=== PATIENT | male | born 1995 | race Two or more races ===

== ENCOUNTER → 2024-04-13 | Outpatient (CLI) | payer OTHER, SELFPAY ==
--- NOTE | 2024-04-13 13:00 | XR_ITS ---
Examination: Hand, right 3 views Technique: Hand AP, oblique, lateral 3 views Date and time of exam: April 13, 2024 1302 hours INDICATIONS: Injury to the hand today, hand pain FINDINGS: No acute fracture No dislocation No foreign body IMPRESSION: No acute fracture
== END | disposition home or self-care (01) ==
LOC: CDIM 12:34
PROVIDERS: Referring Provider Physician Assistant; Visit Provider Physician Assistant
DX: S69.91XA Unspecified injury of right wrist, hand and finger(s), initial encounter (principal); X58.XXXA Exposure to other specified factors, initial encounter
CPT/HCPCS: 73130

== ENCOUNTER → 2024-05-23 | Outpatient (CLI) | payer OTHER, SELFPAY ==
--- NOTE | 2024-05-23 07:00 | XR_ITS ---
Exam: MRI knee without contrast, right Date and time of exam: May 23, 2024 0709 hours INDICATIONS: Right knee pain instability joint clicking swelling beginning 2 years ago Technique: Multiple axial, coronal, and sagittal sections on the knee have been obtained. T2-Weighted sagittal, fat-suppressed images, TR 3,500, TE 62, T2 weighted coronal fat-saturated images, TR 3,500, TE 62 Proton density sagittal sections, TR 1800, TE 31. T-1 weighted coronal images, TR 524, TE 13.0 Findings: Medial meniscus anterior horn intact. Medial meniscus, body small peripheral horizontal linear tear. Posterior horn medial meniscus small peripheral horizontal linear tear. Lateral meniscus anterior horn is intact Lateral meniscus, body is intact Posterior horn lateral meniscus is intact Anterior cruciate ligament mild to moderate strain Posterior cruciate ligament appears intact. Knee effusion is small. Quadriceps and patellar tendons appear intact. There is no evidence of tendinosis. Inflammatory change or fracture of Hoffa's fat pad is not seen. Medial patellar facet demonstrates no thinning. Lateral patellar facet cartilage demonstrates no thinning. Trochlear cartilage demonstrates no thinning. Marrow signal adequate.. Medial collateral ligament appears intact. No meniscocapsular separation is seen. Illiotibial band and fibular collateral ligament are intact. Biceps femoris tendons appear intact. Medial femoral condylar articular cartilage demonstrates mild thinning. Lateral femoral condylar articular cartilage demonstratesno thinning. Tibial plateau cartilage demonstrates mild medial thinning. Impression: Small horizontal peripheral linear tears body and posterior horn medial meniscus Mild to moderate strain anterior cruciate ligament
== END | disposition home or self-care (01) ==
PROVIDERS: Referring Provider Nurse Practitioner Primary Care; Visit Provider Nurse Practitioner Primary Care
DX: S83.241A Other tear of medial meniscus, current injury, right knee, initial encounter (principal); S89.91XA Unspecified injury of right lower leg, initial encounter; X58.XXXA Exposure to other specified factors, initial encounter
CPT/HCPCS: 73721

== ENCOUNTER 2024-07-12 17:12 | Emergency (ER) | payer OTHER, MEDICAID, SELFPAY ==
--- NOTE | 2024-07-12 17:53 | XR_ITS ---
Examination: CT abdomen and pelvis without contrast. Coronal 3-D reconstructions. Sagittal 2-D reconstructions. Date and time of exam:July 12, 2024 at 1834 hrs. Comparison July 01, 2017 Indications: Onset abdominal pain beginning 7 days ago CTDI: vol (mGy): 12 DLP: (mGycm): 811 Technique: Axial images of the abdomen have been obtained, 3 mm slice thickness Intravenous contrast material has not been administered. Low dose protocols were performed. One or more of the following dose reduction techniques were used; automated exposure control, adjustment of the mA and/or KV according to patient size, use of iterative reconstruction technique. Findings: Hepatomegaly 20 cm Diffuse fatty infiltration throughout the liver No gallstones Spleen not enlarged No pancreatic or adrenal mass No renal or ureteral calculi, no hydronephrosis 26 mm fat-containing umbilical hernia Normal appendix No bowel obstruction No diverticulitis, scattered diverticulosis is present Normal seminal vesicles No prostatomegaly Contracted urinary bladder Intact osseous structures Impression: Hepatomegaly, 20 cm with fatty infiltration No renal or ureteral calculi, no hydronephrosis 26 mm fat-containing umbilical hernia Normal appendix Scattered colonic diverticulosis, no diverticulitis
--- NOTE | 2024-07-12 17:54 | PD.EDRME ---
Rapid Medical Screening Exam RME Arrival date/time: 07/12/24 17:12 28-year-old male with no known medical history presents to the emergency room with a chief complaint of lower abdominal 7 out of 10 pain. Patient states he has been having episodes of constipation for the last 7 days where he feels like his bowel movements are very small. Today patient states he had a bowel movement and there was a lot of blood when he wiped as well as in the toilet bowl. I have greeted and performed a focused initial assessment of this patient. A comprehensive ED assessment and evaluation of the patient, analysis of all test results, and completion of the medical decision making process will be conducted by additional ED providers. Chief Complaint: General Adult/Misc Complain Time Seen by Provider: 07/12/24 17:30 Vital signs reviewed by provider: Yes
[2024-07-12 18:13] LABS: Basophils # (Auto) 0.1 Thou/mm3 (0.0-0.2); Basophils % (Auto) 1 % (0-2.5); Eosinophils # (Auto) 0.2 Thou/mm3 (0.0-0.5); Eosinophils % (Auto) 2 % (0-10); Hematocrit 44.4 % (41.0-53.0); Immature Granulocytes % (Auto) 0 % (0-0); Immature Granulocytes Auto 0.02 Thou/mm3 (0.00-0.00); Lymphocytes # (Auto) 3.6 Thou/mm3 (1.0-4.8); Lymphocytes % (Auto) 40 % (10-50); Mean Corpuscular HGB Conc 33.8 g/dl (31.0-37.0); Mean Corpuscular Hemoglobin 29.4 pg (25.0-35.0); Mean Corpuscular Volume 87 fL (80-100); Monocytes # (Auto) 0.5 Thou/mm3 (0.0-0.8); Monocytes % (Auto) 6 % (0-12); Neutrophils # (Auto) 4.6 Thou/mm3 (1.8-7.7); Neutrophils % (Auto) 51 % (37-80); Nucleated Red Blood Cell % 0 /100 WBC (0); Platelet Count 245 Thou/mm3 (140-440); RDW Standard Deviation 40.1 fL (35.1-43.9); White Blood Count 8.9 Thou/mm3 (3.8-10.6)
[2024-07-12 18:27] LABS: Partial Thromboplastin Time 29.1 Seconds (22.0-36.0)
[2024-07-12 18:43] VITALS: BP 128/84; PULSE 98; RESP 18; TEMP 36.8; O2SAT 98; BMI 33.2
[2024-07-12 18:58] LABS: Alanine Aminotransferase 94 U/L (10-49); Albumin, Serum 4.9 gm/dL (3.5-5.0); Albumin/Globulin Ratio 1.8 (1.2-2.2); Alkaline Phosphatase 86 U/L (46-116); Anion Gap 8 (7-16); Aspartate Amino Transferase 41 U/L (0-34); BUN/Creatinine Ratio 14 Ratio (12-20); Bilirubin,Total 0.4 mg/dL (0.3-1.2); Blood Urea Nitrogen 15 mg/dL (9-23); Calcium 9.5 mg/dL (8.3-10.6); Calcium (Corrected) 9.5 mg/dL (8.5-10.1); Carbon Dioxide 28.2 mMol/L (20.0-31.0); Chloride 105 mMol/L (98-107); Creatinine (Component) 1.1 mg/dL (0.6-1.3); Estimated Creatinine Clearance 133.8 mL/min (>60); Globulin 2.8 gm/dL (2.3-3.5); Glucose 91 mg/dL (74-106); Lipase 59 U/L (12-53); Osmolality,Calculated 282 (275-295); Potassium 3.7 mMol/L (3.4-5.1); Sodium 141 mMol/L (136-145); Total Protein 7.7 gm/dL (5.7-8.2); eGFR > 60 See Note
[2024-07-12 19:13] LABS: Collection Type, Urine Clean Catch; Squamous Epithelial Cell,Urine 0 /hpf (0-5)
[2024-07-12 19:18] LABS: Bilirubin,Urine Negative (Negative); Blood,Urine Negative (Negative); Clarity,Urine Clear (Clear/Hazy); Color,Urine Yellow (Lt Yel-Yel); Glucose, Urine Negative (Negative); Ketones,Urine Negative (Negative); Leukocyte Esterase,Urine Negative (Negative); Nitrite,Urine Negative (Negative); Protein,Urine Negative (Neg - Trace); RBC,Urine 1 /hpf (0-3); Urobilinogen,Urine Negative mg/dL (0.0-1.0); WBC,Urine < 1 /hpf (0-5)
--- NOTE | 2024-07-12 21:29 | EDNOTE_ITS ---
ED Abdominal Pain RME/HPI General Chief Complaint: General Adult/Misc Complain Stated complaint: ABD PAIN, DIFF HAVING BM, BLOODY BM TODAY Time seen by provider: 07/12/24 17:30 Arrival date/time: 07/12/24 17:12 RME / HPI RME / HPI narrative: 28-year-old male with no known medical history presents to the emergency room with a chief complaint of lower abdominal 7 out of 10 pain. Patient states he has been having episodes of constipation for the last 7 days where he feels like his bowel movements are very small. Today patient states he had a hard bowel movement and there was a lot of blood when he wiped as well as in the toilet bow l. Related Data Previous Rx's ?Medication ?Instructions ?Recorded ibuprofen 800 mg tablet 800 mg PO Q8H PRN pain #20 t abs 04/14/23 polyethylene glycol 3350 17 17 g PO QDAY 5 days #119 g mello 07/12/24 gram/dose oral powder Allergies Allergy/AdvReac Type Severity Reaction Status Date / Time amoxicillin Allergy Severe HIVES Verified 07/12/24 17:15 Penicillins Allergy Severe HIVES Verified 07/12/24 17:15 Review of Systems Review of Systems Systems Reviewed: All systems reviewed, normal except as documented Past Medical History Past Medical History CARDIAC: Negative Cardiac Disorders or Congestive Heart Failure RESPIRATORY: Negative Chronic Obstructive Pulmonary Disease (COPD) or Asthma GENITOURINARY: Negative Renal Disease MUSCULOSKELETAL: Positive Musculoskeletal Disorders ENT: Positive Blind (legally blind rt eye) ENDOCRINE: Negative Diabetes Mellitus Type 1 or Diabetes Mellitus Type 2 HEMATOLOGIC: Negative Sickle Cell Disease Social History SMOKING STATUS: Never smoker SUBSTANCE USE: does not use ED Exam Narrative Physical exam: Constitutional: no acute distress, age appropriate, non-toxic Eyes: PERRL, conjunctivae w/o pallor, EOMI HENT: normocephalic, atraumatic. Oral mucosa moist Respiratory Effort: no stridor, effort normal, no retractions Breath sounds: Clear bilaterally; No rales, No rhonchi, No wheezing Cardiovascular: regular rhythm, S1 and S2 normal, no murmur Abdominal: soft; non-distended, non-tender Rectal: Deferred Musculoskeletal: no deformities, no swelling, no LE edema Skin: warm, dry; No rash Neurology: alert, oriented X 4. Normal gait. Moves all extremities spontaneously. Psychology: cooperative, normal mood Course Quality Measures none Orders Category Date Time Status CT abdomen pelvis wo con Stat Exams 07/12/24 17:53 Completed CBC Stat Lab 07/12/24 18:04 Completed CMP [Comprehensive Metabolic Panel] Stat Lab 07/12/24 18:04 Completed Lipase Stat Lab 07/12/24 18:04 Completed PT [Prothrombin Time with INR] Stat Lab 07/12/24 18:04 Completed PTT [Partial Thromboplastin Time] Stat Lab 07/12/24 18:04 Completed Type and Screen Stat Lab 07/12/24 18:04 Completed UA [Urinalysis] Stat Lab 07/12/24 18:30 Completed Urine Culture Stat Lab 07/12/24 18:30 Received Vital Signs Vital signs: Vital Signs Temperature 98.3 F 07/12/24 18:43 Pulse Rate 98 07/12/24 18:43 Respiratory Rate 18 07/12/24 18:43 Blood Pressure 128/84 07/12/24 18:43 Pulse Oximetry (%) 98 07/12/24 18:43 Oxygen Delivery Method Room Air 07/12/24 18:43 Abdominal Pain MDM MDM Narrative MDM Narrative:: Patient is a 28-year-old male who presents with complaint of abdominal pain, constipation, and 1 episode of bright red bleeding after bowel movement. Differential diagnoses include GI bleed, gastroenteritis, appendicitis, hemorrhoid, anal fissure Given history and exam, along with normal hemoglobin, I have very low suspicion for GI bleeding. Given history of constipation, very likely anal fissure. CT without evidence of appendicitis or other surgical abdomen. Labs reviewed and are reassuring. Counseled patient to increase oral fluid intake. Will send Rx for MiraLAX. Strict return to ED precautions given and counseled to follow-up with primary care. Patient data External records reviewed:: [facility] previous records Clinical information provided by:: patient Social determinants that could affect healthcare access:: none Patient has the following chronic illnesses:: None How is presenting disease/condition affected by chronic disease/condition?: no chronic disease Evaluation data The following diagnostics were reviewed and interpreted by me:: lab results and radiology exam(s) Lab and/or radiology exams considered but not ordered:: None Interpretation Summary: CBC shows no leukocytosis or anemia CMP shows no electrolyte abnormalities, no KIMBERLY. LFTs less than 3x upper limit of normal UA unremarkable Examination: CT abdomen and pelvis without contrast. Coronal 3-D reconstructions. Sagittal 2-D reconstructions. Date and time of exam:July 12, 2024 at 1834 hrs. Comparison July 01, 2017 Findings: Hepatomegaly 20 cm Diffuse fatty infiltration throughout the liver No gallstones Spleen not enlarged No pancreatic or adrenal mass No renal or ureteral calculi, no hydronephrosis 26 mm fat-containing umbilical hernia Normal appendix No bowel obstruction No diverticulitis, scattered diverticulosis is present Normal seminal vesicles No prostatomegaly Contracted urinary bladder Intact osseous structures Impression: Hepatomegaly, 20 cm with fatty infiltration No renal or ureteral calculi, no hydronephrosis 26 mm fat-containing umbilical hernia Normal appendix Scattered colonic diverticulosis, no diverticulitis Medications / Prescriptions Medications or Prescriptions considered but not ordered:: None Medication administrations:: N/A Consultations Consultation(s) initiated? (list below): No Diagnosis Differential diagnosis abdominal pain: other (See MDM section) Most likely diagnosis given after review of the tests above:: Constipation Admission Indicated Admission indicated?: not indicated Admission Request Was there a request for admission?: No Disposition Plan Disposition Plan: Discharge Discharge Attestation Discharge Attestation: The patient and all family members were given an opportunity to ask questions and understood the discharge instructions. Discharge instructions specifically effects, indications for sooner follow up or return to the emergency department, and the expected course of current diagnosis. Patient condition: Stable Discharge Plan Plan Patient Disposition: HOME (Self Care) Prescriptions/Referrals Prescriptions/Med Rec: New polyethylene glycol 3350 17 gram/dose powder 17 g PO QDAY 5 Days Qty: 119 0RF No Action ibuprofen 800 mg tablet 800 mg PO Q8H PRN (Reason: pain) Qty: 20 0RF Referrals: No Primary/Family,Physician [Primary Care Provider] - In 1 week Problem List Clinical Impression: Abdominal pain, Constipation Patient/Caregiver Discharge Instructions Education Materials: Understanding Anal Fissures, Taking a Sitz Bath, ED Constipation (Adult) Additional Instructions: Increase oral fluid intake. Take medication as prescribed. Do warm sitz baths twice a day. Return to the ED at anytime for any new or worsening symptoms. -up with your PCP Print Language: Niuean Stand Alone Forms: [facility] Info., Patient Portal Info Letter
== END 2024-07-12 21:49 | disposition home or self-care (01) ==
PROVIDERS: Nurse Practitioner Family; Emergency Provider Emergency Medicine
DX: K59.00 Constipation, unspecified (principal); K76.0 Fatty (change of) liver, not elsewhere classified; K42.9 Umbilical hernia without obstruction or gangrene; K57.30 Diverticulosis of large intestine without perforation or abscess without bleeding
CPT/HCPCS: 36415; 74176; 80053; 81001; 83690; 85025; 85610; 85730; 86850; 86900; 86901; 87086; 99284

== ENCOUNTER 2025-03-14 16:17 | Emergency (ER) | payer OTHER, SELFPAY ==
--- NOTE | 2025-03-14 16:22 | EKG_ITS ---
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
[2025-03-14 16:46] VITALS: BP 138/85; PULSE 96; RESP 18; TEMP 36.7; O2SAT 98; BMI 35.3
--- NOTE | 2025-03-14 16:46 | XR_ITS ---
CLINICAL INDICATION: Chest Pain Exam date and time: 03/14/2025, 4:57 p.m. TECHNIQUE: XR chest 2V COMPARISON: Chest radiograph 01/07/2023 FINDINGS: The cardiomediastinal silhouette is within normal limits. No airspace opacities suggestive of pneumonia. No mass detected. No pleural effusion or pneumothorax. No acute osseous abnormality detected. Redemonstration of mild convex right thoracic spinal curvature. IMPRESSION: No radiographic evidence for acute cardiopulmonary abnormality. No significant interval change since the comparison study. - This report was generated utilizing speech recognition software. -
--- NOTE | 2025-03-14 16:46 | XR_ITS ---
Examination: CT brain head without contrast. 2-D sagittal coronal reconstructions Date and time of exam: March 14, 2025, 1735 hours INDICATIONS: Syncopal episode and fall today head pain CTDI: vol (mGy): 56 DLP: (mGycm): 1179 Technique: Multiple CT axial sections of the brain have been obtained, 5 mm slice thickness. Contrast has not been administered. 2-D sagittal, coronal reconstructions have been obtained Low dose protocols were performed. One or more of the following dose reduction techniques were used; automated exposure control, adjustment of the mA and/or KV according to patient size, use of iterative reconstruction technique. Findings: No significant ventricular enlargement. Intra-axial or extra-axial hemorrhage density is not seen. No mass effect or midline shift Basal cisterns are not remarkable. Fourth ventricle is midline. Cranial vault intact. Impression: Negative for acute hemorrhage, mass effect or midline shift
--- NOTE | 2025-03-14 16:46 | PD.EDRME ---
Rapid Medical Screening Exam RME Arrival date/time: 03/14/25 16:17 29-year-old male presents emergency room today for complaints of dizziness chest pain headache Chief Complaint: Chest Pain Vital signs reviewed by provider: Yes Exam: On exam patient well-appearing patient does not appear to talk Clinical Impression: Lab work imaging EKG obtained
[2025-03-14 17:39] LABS: Basophils # (Auto) 0.1 Thou/mm3 (0.0-0.2); Basophils % (Auto) 1 % (0-2.5); Eosinophils # (Auto) 0.2 Thou/mm3 (0.0-0.5); Eosinophils % (Auto) 2 % (0-10); Hematocrit 43.5 % (41.0-53.0); Hemoglobin 14.8 g/dL (13.5-16.0); Immature Granulocytes Auto 0.02 Thou/mm3 (0.00-0.00); Lymphocytes # (Auto) 3.8 Thou/mm3 (1.0-4.8); Lymphocytes % (Auto) 40 % (10-50); Mean Corpuscular HGB Conc 34.0 g/dl (31.0-37.0); Mean Corpuscular Hemoglobin 29.6 pg (25.0-35.0); Mean Corpuscular Volume 87 fL (80-100); Monocytes # (Auto) 0.7 Thou/mm3 (0.0-0.8); Monocytes % (Auto) 8 % (0-12); Neutrophils # (Auto) 4.7 Thou/mm3 (1.8-7.7); Neutrophils % (Auto) 50 % (37-80); Nucleated Red Blood Cell # 0.00 Thou/mm3 (0.00-0.00); Nucleated Red Blood Cell % 0 /100 WBC (0); Platelet Count 260 Thou/mm3 (140-440); RDW Standard Deviation 39.3 fL (35.1-43.9); Red Blood Count 5.00 Miln/mm3 (4.50-5.90); White Blood Count 9.5 Thou/mm3 (3.8-10.6)
[2025-03-14 18:01] LABS: Alanine Aminotransferase 144 U/L (10-49); Albumin, Serum 5.2 gm/dL (3.5-5.0); Albumin/Globulin Ratio 2.3 (1.2-2.2); Alkaline Phosphatase 96 U/L (46-116); Anion Gap 13 (7-16); Aspartate Amino Transferase 73 U/L (0-34); BUN/Creatinine Ratio 7 Ratio (12-20); Bilirubin,Total 0.4 mg/dL (0.3-1.2); Blood Urea Nitrogen 7 mg/dL (9-23); Calcium 9.7 mg/dL (8.3-10.6); Calcium (Corrected) 9.7 mg/dL (8.5-10.1); Carbon Dioxide 24.5 mMol/L (20.0-31.0); Chloride 104 mMol/L (98-107); Creatinine (Component) 1.0 mg/dL (0.6-1.3); Estimated Creatinine Clearance 150.3 mL/min (>60); Globulin 2.3 gm/dL (2.3-3.5); Glucose 98 mg/dL (74-106); Osmolality,Calculated 279 (275-295); Potassium 3.9 mMol/L (3.4-5.1); Sodium 141 mMol/L (136-145); Total Protein 7.5 gm/dL (5.7-8.2); Troponin I < 0.002 ng/mL (0.0-0.045); eGFR > 60 See Note
[2025-03-14 22:18] VITALS: BP 147/101; PULSE 76; RESP 16; TEMP 36.8; O2SAT 97
--- NOTE | 2025-03-14 22:26 | EDNOTE_ITS ---
ED Chest Pain RME/HPI General Chief Complaint: Chest Pain Stated Complaint: CHEST HEAVINESS, DIZZY, WEAK, TIRED Time Seen by Provider: 03/14/25 22:27 Arrival date/time: 03/14/25 16:17 RME / HPI RME / HPI narrative: 03/14/25 16:17 29-year-old male presents emergency room today for complaints of dizziness chest pain headache Dr. Harding?s Main ED Evaluation: 29yo male with no significant past medical history presents to the ED for a chief complaint of mid chest pain x this afternoon. Patient was out shopping when he developed sudden onset of chest heaviness, dizziness, nausea, and sweating. Patient denies any palpitations or any other associated symptoms. Denies any history of DM, HTN, or HLD. Denies tobacco use. Related Data Previous Rx's ?Medication ?Instructions ?Recorded ibuprofen 800 mg tablet 800 mg PO Q8H PRN pain #20 t abs 04/14/23 Allergies Allergy/AdvReac Type Severity Reaction Status Date / Time amoxicillin Allergy Severe HIVES Verified 03/14/25 16:20 Penicillins Allergy Severe HIVES Verified 03/14/25 16:20 Review of Systems Review of Systems Systems Reviewed: All systems reviewed, normal except as documented Past Medical History Past Medical History CARDIAC: Negative Cardiac Disorders or Congestive Heart Failure RESPIRATORY: Negative Chronic Obstructive Pulmonary Disease (COPD) or Asthma GENITOURINARY: Negative Renal Disease MUSCULOSKELETAL: Positive Musculoskeletal Disorders ENT: Positive Blind ENDOCRINE: Negative Diabetes Mellitus Type 1 or Diabetes Mellitus Type 2 HEMATOLOGIC: Negative Sickle Cell Disease Social History SMOKING STATUS: Never smoker SUBSTANCE USE: does not use ED Exam Narrative Physical exam: Generally patient is alert and in no obvious distress, chest shows no wounds no crepitance no subcu air nontender to palpation, heart regular rate and rhythm, lungs clear to auscultation equal laterally, abdomen soft bowel sounds present nondistended nontender, skin is warm pale and dry, neurologic exam no focal motor or sensory deficits cranial nerves II through XII grossly intact Course Course Course Narrative: CXR is ordered for determining the etiology of chest pain. Quality Measures none Orders Category Date Time Status EKG (ED ONLY) *Do not use* NOW Care 03/14/25 16:[address] head/brain wo con Stat Exams 03/14/25 16:46 Completed EKG (ED Only) Stat Exams 03/14/25 16:22 Draft XR chest 2V Stat Exams 03/14/25 16:46 Completed CBC Stat Lab 03/14/25 17:21 Completed Comprehensive Metabolic Panel Stat Lab 03/14/25 17:21 Completed Troponin I Stat Lab 03/14/25 17:21 Completed Vital Signs Vital signs: Vital Signs Temperature 98.1 F 03/14/25 16:46 Pulse Rate 96 03/14/25 16:46 Respiratory Rate 18 03/14/25 16:46 Blood Pressure 138/85 H 03/14/25 16:46 Pulse Oximetry (%) 98 03/14/25 16:46 Oxygen Delivery Method Room Air 03/14/25 16:46 Chest Pain MDM Narrative MDM Narrative:: Scribe Attestation: 03/14/25 Haley Worley am scribing for and in the presence of Dr. Harding. EKG obtained at 4:50 PM shows normal sinus rhythm at rate of 80 without ischemic change or ectopy. Chest x-ray is normal. Troponin is not elevated. Patient is not anemic. Renal function is normal. Physical exam is normal. Patient's heart score is 0. Patient is stable for discharge. Follow-up with his doctor. Return to ER as needed or if condition worsens. Patient data External records reviewed:: [facility] previous records (Per chart review, patient was seen here on 07/12/24 for abdominal pain.) Clinical information provided by:: patient Social determinants that could affect healthcare access:: none Patient has the following chronic illnesses:: none How is presenting disease/condition affected by chronic disease/condition?: no chronic disease Evaluation data The following diagnostics were reviewed and interpreted by me:: lab results, radiology exam(s) and EKG tracing(s) Lab and/or radiology exams considered but not ordered:: none Interpretation Summary: [facility] Report Signed Patient: ALEXANDRO CARTWRIGHT [facility]. Record#: [id number] Birthdate: 1995 Age/Sex: 29 / M Location: [facility] Attending Dr: Ordering Physician: Garcia ORTEGA)Artemio NP Date of Service: 03/14/25 Procedure(s): XR chest 2V Accession Number(s): [id number] cc: Garcia ORTEGA)Artemio NP; Loy Alfonso DO~ CLINICAL INDICATION: Chest Pain Exam date and time: 03/14/2025, 4:57 p.m. TECHNIQUE: XR chest 2V COMPARISON: Chest radiograph 01/07/2023 FINDINGS: The cardiomediastinal silhouette is within normal limits. No airspace opacities suggestive of pneumonia. No mass detected. No pleural effusion or pneumothorax. No acute osseous abnormality detected. Redemonstration of mild convex right thoracic spinal curvature. IMPRESSION: No radiographic evidence for acute cardiopulmonary abnormality. No significant interval change since the comparison study. - This report was generated utilizing speech recognition software. - Dictated By: Loy Alfonso DO Signed By: <Electronically signed by Lyo Alfonso DO in OV> 03/14/25 1712 [facility] Signed Patient: ALEXANDRO CARTWRIGHT [facility]. Record#: [id number] Birthdate: 1995 Age/Sex: 29 / M Location: [facility] Attending Dr: Ordering Physician: Garcia ORTEGA)Artemio NP Date of Service: 03/14/25 Procedure(s): CT head/brain wo con Accession Number(s): [id number] cc: Zoe Roldan NP; Garcia ORTEGA)Artemio NP; Colin Peralta MD~ Examination: CT brain head without contrast. 2-D sagittal coronal reconstructions Date and time of exam: March 14, 2025, 1735 hours INDICATIONS: Syncopal episode and fall today head pain CTDI: vol (mGy): 56 DLP: (mGycm): 1179 Technique: Multiple CT axial sections of the brain have been obtained, 5 mm slice thickness. Contrast has not been administered. 2-D sagittal, coronal reconstructions have been obtained Low dose protocols were performed. One or more of the following dose reduction techniques were used; automated exposure control, adjustment of the mA and/or KV according to patient size, use of iterative reconstruction technique. Findings: No significant ventricular enlargement. Intra-axial or extra-axial hemorrhage density is not seen. No mass effect or midline shift Basal cisterns are not remarkable. Fourth ventricle is midline. Cranial vault intact. Impression: Negative for acute hemorrhage, mass effect or midline shift Dictated By: Colin Peralta MD Signed By: <Electronically signed by Colin Peralta MD in OV> 03/14/25 1810 Medications / Prescriptions Medications or Prescriptions considered but not ordered:: none Medication administrations:: none Consultations Consultation(s) initiated? (list below): No Diagnosis Chest Pain Differential Diagnosis: other (See MDM) Most likely diagnosis given after review of the tests above:: see clinical impression below Admission Indicated Admission indicated?: not indicated Admission Request Was there a request for admission?: No Disposition Plan Disposition Plan: Discharge Discharge Attestation Discharge Attestation: The patient and all family members were given an opportunity to ask questions and understood the discharge instructions. Discharge instructions specifically effects, indications for sooner follow up or return to the emergency department, and the expected course of current diagnosis. Patient condition: Stable Discharge Plan Plan Patient Disposition: HOME (Self Care) Prescriptions/Referrals Prescriptions/Med Rec: No Action ibuprofen 800 mg tablet 800 mg PO Q8H PRN (Reason: pain) Qty: 20 0RF Referrals: Zoe Roldan NP [Primary Care Provider] - In 1 week Problem List Clinical Impression: Chest pain Patient/Caregiver Discharge Instructions Education Materials: ED Chest Pain, Uncertain Cause Additional Instructions: Follow-up with your doctor for further treatment and evaluation as needed. Return to ER as needed or if condition worsens. Print Language: Marshallese Stand Alone Forms: [facility] Info., Patient Portal Info Letter
[2025-03-14 23:14] VITALS: BP 116/79; PULSE 75; RESP 16; O2SAT 97
== END 2025-03-14 23:15 | disposition home or self-care (01) ==
PROVIDERS: Nurse Practitioner Primary Care; Emergency Provider Emergency Medicine; PCP Nurse Practitioner Primary Care
DX: R07.9 Chest pain, unspecified (principal)
CPT/HCPCS: 36415; 70450; 71046; 80053; 84484; 85025; 93005; 99283